=== PATIENT | male | born 1945 | race Hispanic/Latino ===

== ENCOUNTER 2017-09-21 13:51 | Inpatient (IN) | payer MEDICARE ==
[2017-09-21 13:57] VITALS: BMI 34.0
[2017-09-21] MEDS ORDERED: Aspirin 325 mg EC Tablets PO STA (14:51)
[2017-09-21 15:19] LABS: BASO # 0.1 K/uL (0.0-0.2); BASO % 1.1 % (0.0-2.0); EOS # 0.1 K/uL (0.0-0.7); EOS % 1.3 % (0.0-4.0); HEMOGLOBIN 11.4 g/dL (12.0-18.0); LYMPH # 0.8 K/uL (1.0-4.3); LYMPH % 17.2 % (20.0-40.0); MEAN CELL VOLUME 86.3 fL (80.0-94.0); MEAN CORPUSCULAR HEMOGLOBIN 29.5 pg (27.0-31.0); MEAN CORPUSCULAR HGB CONC 34.1 g/dL (33.0-37.0); MEAN PLATELET VOLUME 8.7 fL (7.2-11.7); MONO # 0.3 K/uL (0.0-0.8); MONO % 5.5 % (0.0-10.0); NEUT # 3.7 K/uL (1.8-7.0); NEUT % 74.9 % (50.0-75.0); RBC 3.87 Mil/uL (4.40-5.90); RED CELL DISTRIBUTION WIDTH 14.8 % (11.5-14.5); WHITE BLOOD COUNT 4.9 K/uL (4.8-10.8)
[2017-09-21 15:26] LABS: INR 1.1; PROTHROMBIN TIME 11.8 SECONDS (9.7-12.2)
[2017-09-21 15:31] LABS: ALB/GLOB RATIO 1.3 (1.0-2.1); ALT/SGPT 27 U/L (21-72); AST/SGOT 19 U/L (17-59); BLOOD UREA NITROGEN 15 mg/dL (9-20); CALCIUM 8.9 mg/dl (8.6-10.4); GFR AFRICAN-AMERICAN > 60; GFR NON-AFRICAN AMERICAN > 60
[2017-09-21 15:43] LABS: B-TYPE NATRIURETIC PEPTIDE 256 pg/mL (0-900)
--- NOTE | 2017-09-21 15:57 | C.PDOC ---
History Of Present Illness 72 year old male, whose PMHx includes DM, HTN, Hyperlipidema, and CABG, presents to the ED for evaluation of left-sided chest wall pain and left-sided headache which began last night. Patient was resting when his pain had sudden onset and has been sharp and constant in nature. Patient also reports pain in his left ear and reports dizziness described as a "room spinning" sensation. He denies nausea, vomiting. Time Seen by Provider: 09/21/17 14:15 Chief Complaint (Nursing): Chest Pain History Per: Patient History/Exam Limitations: no limitations Onset/Duration Of Symptoms: Hrs, Sudden Onset, Persistent Current Symptoms Are (Timing): Still Present Quality: Sharp, "Pain" Associated Symptoms: Diaphoresis. denies: Nausea Additional History Per: Patient Past Medical History Reviewed: Historical Data, Nursing Documentation, Vital Signs Vital Signs: Last Vital Signs Temp 98.1 F 09/21/17 14:10 Pulse 86 09/21/17 14:10 Resp 16 09/21/17 14:10 BP 153/66 H 09/21/17 14:10 Pulse Ox 97 09/21/17 16:39 - Medical History PMH: CAD, Diabetes, Fractures (RIGHT ELBOW), Gastritis, HTN, Hypercholesterolemia Denies: Chronic Kidney Disease Surgical History: CABG, Coronary Stent (X2) - [employer] Procedures INSERT INDWELLING CATH (02/18/14) Family History: States: Unknown Family Hx - Social History Hx Tobacco Use: No Hx Alcohol Use: No Hx Substance Use: No - Immunization History Hx Tetanus Toxoid Vaccination: No Hx Influenza Vaccination: Yes (05/2016) Hx Pneumococcal Vaccination: Yes (2014) Review Of Systems ENT: Positive for: Ear Pain (left) Cardiovascular: Positive for: Chest Pain (left-sided ) Gastrointestinal: Negative for: Nausea, Vomiting Neurological: Positive for: Headache (left-sided ), Dizziness Physical Exam - Physical Exam Appears: Non-toxic, No Acute Distress Skin: Normal Color, Warm, Dry Head: Atraumatic, Normacephalic Eye(s): bilateral: Normal Inspection, PERRL, EOMI, Other (no nystagmus ) Ear(s): Bilateral: Normal Oral Mucosa: Moist Neck: Supple Lymphatic: No Adenopathy Chest: Symmetrical, No Deformity, Tenderness (digitally reproducible to left parasternal border ) Cardiovascular: Rhythm Regular, No Murmur Respiratory: Normal Breath Sounds, No Rales, No Rhonchi, No Wheezing Extremity: Normal ROM, Pedal Edema (1/4), Capillary Refill (less than 2 seconds ) Pulses: Left Dorsalis Pedis: Normal, Right Dorsalis Pedis: Normal Neurological/Psych: Oriented x3, Normal Speech, Normal Cognition Gait: Steady ED Course And Treatment - Laboratory Results Result Diagrams: 09/21/17 15:10 09/21/17 15:10 Lab Interpretation: Normal (trop neg.) ECG: Interpreted By Me ECG Rhythm: Sinus Rhythm ECG Interpretation: Normal Rate From EC O2 Sat by Pulse Oximetry: 97 (on RA) Pulse Ox Interpretation: Normal - Radiology CXR: Interpreted by Me CXR Interpretation: Yes: No Acute Disease Progress Note: Bloodwork, urinalysis, EKG, CXR ordered and reviewed. Aspirin PO and Toradol IVP administered. Reevaluation Time: 16:34 Reassessment Condition: Improved - Physician Consult Information Outcome Of Conversation: 1630: d/w Dr. Overton- Medicine Mechanic Field Service- covering pt's for Dr. Andrea- nd to admit. Medical Decision Making Medical Decision Making: unstable angina moderately controlled DM and HTN Anxiety- Tramadol will help LOW susp of Acute intracerebral issues. Disposition Doctor Will See Patient In The: Hospital Counseled Patient/Family Regarding: Studies Performed, Diagnosis - Disposition Disposition: HOSPITALIZED Disposition Time: 16:37 Condition: GOOD Forms: [facility] (French) - Clinical Impression Clinical Impression: Chest discomfort, Headache - Scribe Statement The provider has reviewed the documentation as recorded by the Scribe (Rose Campbell) Provider Attestation: All medical record entries made by the Scribe were at my direction and personally dictated by me. I have reviewed the chart and agree that the record accurately reflects my personal performance of the history, physical exam, medical decision making, and the department course for this patient. I have also personally directed, reviewed, and agree with the discharge instructions and disposition.
[2017-09-21 17:03] LABS: SQUAMOUS EPITHIAL < 1 /hpf (0-5); URINE BILIRUBIN NEGATIVE (NEGATIVE); URINE BLOOD NEGATIVE (NEGATIVE); URINE CLARITY Clear (Clear); URINE COLOR Yellow (YELLOW); URINE GLUCOSE (UA) 3+ mg/dL (Normal); URINE LEUKOCYTE ESTERASE NEG Leu/uL (Negative); URINE NITRATE NEGATIVE (NEGATIVE); URINE PROTEIN NEGATIVE (NEGATIVE); URINE UROBILINOGEN NORMAL mg/dL (0.2-1.0)
--- NOTE | 2017-09-21 17:09 | RAD ---
PROCEDURE: CHEST RADIOGRAPH, 1 VIEW HISTORY: SOB COMPARISON: 03/09/2017 T-spine and chest x-ray 11/07/2015 FINDINGS: LUNGS: No consolidation. Clear lungs PLEURA: No pneumothorax or pleural fluid seen. CARDIOVASCULAR: Mild cardiomegaly. Status post midline sternotomy and coronary artery bypass surgery -stable appearance OSSEOUS STRUCTURES: Thoracic spondylosis. Bilateral shoulder arthrosis. Midline sternotomy VISUALIZED UPPER ABDOMEN: Normal. OTHER FINDINGS: None. IMPRESSION: No acute cardiopulmonary pathology noted
--- NOTE | 2017-09-21 19:45 | CP.PCM.HP ---
History of Present Illness - History of Present Illness History of Present Illness: Patient is a 72 year old male with a past medical history of HTN, HLD, DM, CABG , and aortic valve replacement, who presents to the ED with complaints of left sided chest pain, left ear pain, and left sided headache that worsens with respiration. Patient also complains of dizziness as well as shortness of breath and palpitations. Patient experienced these symptoms last night when he opened his eyes while sitting on the couch and when he walked from the couch to the bathroom. He describes the pain as stabbing needle-like pain. He said he has never experienced these symptoms in the past. The chest pain is also reproducible when he presses in a specific location on his left chest. Patient took a total of 4 Tylenol last night and another 2 this morning with minimal relief. Patient uses a cane just in case he feels dizzy. He states he does not know how long he has been using a cane or has felt dizzy, but it comes and goes for awhile. Currently, patient states his headache is very minimal, his chest pain has improved, but still worse with respiration and with touching that specific location; he denies abdominal pain, nausea, vomiting, referred pain, fevers, legs pain/swelling. PMD: Dr. Janak Andrea Mechanical Drafter: Dr. Harris PMHx: HTN, HLD, DM, AV replacement, SurgHx: CABG (2010), AV replacement (2010), B/L inguinal hernia repair FamHx: Father, Brother-[place]; Father- prostate cancer; Mother- breast cancer SocHx: former smoker (2ppd x20+ years); denies alcohol and drug use; lives alone in [place]; retired Allergies: NKDA Medications: Losartan-HCTZ 100-25mg daily, Amlodipine 5mg daily, Atorvastatin 40mg HS, Plavix 75mg daily, ASA 81mg daily, Metoprolol 25mg daily, protonix 40mg daily, finasteride 5mg daily, alfuzosin ER 10mg daily, Metformin 1000mg BID, meloxicam 15mg daily, gabapentin 600mg daily Present on Admission - Present on Admission Any Indicators Present on Admission: No Review of Systems - Constitutional Constitutional: Headache. absent: Chills, Fever - EENT Eyes: absent: Blurred Vision, Change in Vision Ears: Ear Pain, Dizziness Nose/Mouth/Throat: absent: Sore Throat, Neck Pain - Cardiovascular Cardiovascular: Chest Pain (reproducible; worse with respiration), Dyspnea on Exertion, Palpitations. absent: Leg Edema, Radiating Pain - Respiratory Respiratory: Dyspnea on Exertion. absent: Cough, Hemoptysis, Excessive Mucous Production, Change in Mucous Color - Gastrointestinal Gastrointestinal: absent: Abdominal Pain, Constipation, Diarrhea, Nausea, Vomiting - Genitourinary Genitourinary: absent: Dysuria, Hematuria, Urinary Frequency - Integumentary Integumentary: absent: Unusual Bruising, Wounds - Neurological Neurological: Abnormal Gait (walks with a cane prn for dizziness), Dizziness, Headaches. absent: Weakness - Endocrine Endocrine: Palpitations. absent: Fatigue, Polyuria Past Patient History - Infectious Disease Hx of Infectious Diseases: None - Past Medical History & Family History Past Medical History?: Yes - Past Social History Smoking Status: Former Smoker - CARDIAC Hx Hypercholesterolemia: Yes Hx Hypertension: Yes - PULMONARY Hx Respiratory Disorders: No - NEUROLOGICAL Hx Neurological Disorder: No - HEENT Hx HEENT Problems: No - RENAL Hx Chronic Kidney Disease: No - ENDOCRINE/METABOLIC Hx Endocrine Disorders: Yes Hx Diabetes Mellitus Type 2: Yes - HEMATOLOGICAL/ONCOLOGICAL Hx Blood Disorders: No - INTEGUMENTARY Hx Dermatological Problems: No - MUSCULOSKELETAL/RHEUMATOLOGICAL Hx Fractures: Yes (RIGHT ELBOW) - GASTROINTESTINAL Hx Gastritis: Yes - GENITOURINARY/GYNECOLOGICAL Hx Genitourinary Disorders: Yes Hx Prostate Problems: Yes - PSYCHIATRIC Hx Substance Use: No - SURGICAL HISTORY Hx Coronary Artery Bypass Graft: Yes Hx Coronary Stent: Yes (X2) - ANESTHESIA Hx Anesthesia: Yes Hx Anesthesia Reactions: No Meds Allergies/Adverse Reactions: Allergies Allergy/AdvReac Type Severity Reaction Status Date / Time pollen extracts Allergy CONGESTION Verified 09/21/17 13:57 Physical Exam - Constitutional Appears: No Acute Distress - Head Exam Head Exam: ATRAUMATIC, NORMAL INSPECTION - Eye Exam Eye Exam: EOMI, Normal appearance, PERRL - ENT Exam ENT Exam: Mucous Membranes Moist - Neck Exam Neck exam: Positive for: Full Rom, Normal Inspection. Negative for: Tenderness - Respiratory Exam Respiratory Exam: Clear to Auscultation Bilateral, NORMAL BREATHING PATTERN. absent: Rales, Rhonchi, Wheezes, Respiratory Distress - Cardiovascular Exam Cardiovascular Exam: REGULAR RHYTHM, +S1, +S2, Systolic Murmur (aortic valvle replacement) Additional comments: scar s/p CABG - GI/Abdominal Exam GI & Abdominal Exam: Normal Bowel Sounds, Soft. absent: Distended, Firm, Guarding, Mass, Tenderness - Extremities Exam Extremities exam: Positive for: pedal edema (minimal), pedal pulses present. Negative for: calf tenderness, tenderness - Neurological Exam Neurological exam: Alert, Oriented x3 - Psychiatric Exam Psychiatric exam: Normal Affect, Normal Mood - Skin Skin Exam: Dry, Intact, Normal Color, Warm Results - Vital Signs Recent Vital Signs: Last Vital Signs Temp 98.1 F 09/21/17 14:10 Pulse 86 09/21/17 14:10 Resp 16 09/21/17 14:10 BP 153/66 H 09/21/17 14:10 Pulse Ox 97 09/21/17 16:40 - Labs Result Diagrams: 09/21/17 15:10 09/21/17 15:10 Labs: Laboratory Results - last 24 hr 09/21/17 09/21/17 09/21/17 15:10 15:10 15:10 WBC 4.9 RBC 3.87 L Hgb 11.4 L Hct 33.4 L MCV 86.3 MCH 29.5 MCHC 34.1 RDW 14.8 H Plt Count 160 MPV 8.7 Neut % (Auto) 74.9 Lymph % (Auto) 17.2 L [place] % (Auto) 5.5 Eos % (Auto) 1.3 Baso % (Auto) 1.1 Neut # (Auto) 3.7 Lymph # (Auto) 0.8 L [place] # (Auto) 0.3 Eos # (Auto) 0.1 Baso # (Auto) 0.1 PT 11.8 INR 1.1 APTT 32 Sodium 138 Potassium 4.6 Chloride 101 Carbon Dioxide 25 Anion Gap 16 BUN 15 Creatinine 0.8 Est GFR ( Amer) > 60 Est GFR (Non-Af Amer) > 60 Random Glucose 253 H Calcium 8.9 Total Bilirubin 0.5 AST 19 ALT 27 Alkaline Phosphatase 92 Troponin I < 0.0120 NT-Pro-B Natriuret Pep 256 Total Protein 7.1 Albumin 4.0 Globulin 3.1 Albumin/Globulin Ratio 1.3 Urine Color Urine Clarity Urine pH Ur Specific [place] Urine Protein Urine Glucose (UA) Urine Ketones Urine Blood Urine Nitrate Urine Bilirubin Urine Urobilinogen Ur Leukocyte Esterase Urine WBC (Auto) Urine RBC (Auto) Ur Squamous Epith Cells 09/21/17 16:54 WBC RBC Hgb Hct MCV MCH MCHC RDW Plt Count MPV Neut % (Auto) Lymph % (Auto) [place] % (Auto) Eos % (Auto) Baso % (Auto) Neut # (Auto) Lymph # (Auto) [place] # (Auto) Eos # (Auto) Baso # (Auto) PT INR APTT Sodium Potassium Chloride Carbon Dioxide Anion Gap BUN Creatinine Est GFR ( Amer) Est GFR (Non-Af Amer) Random Glucose Calcium Total Bilirubin AST ALT Alkaline Phosphatase Troponin I NT-Pro-B Natriuret Pep Total Protein Albumin Globulin Albumin/Globulin Ratio Urine Color Yellow Urine Clarity Clear Urine pH 7.0 Ur Specific [place] 1.022 Urine Protein Negative Urine Glucose (UA) 3+ H Urine Ketones Negative Urine Blood Negative Urine Nitrate Negative Urine Bilirubin Negative Urine Urobilinogen Normal Ur Leukocyte Esterase Neg Urine WBC (Auto) < 1 Urine RBC (Auto) 1 Ur Squamous Epith Cells < 1 Assessment & Plan (1) Chest pain Assessment and Plan: R/O ACS Reproducible, unlikely cardiac origin Troponinx1: negative <0.012 Troponin & EKG x2 :f/u Chest xray: no acute cardiopulmonary pathology noted. D-Dimer: f/u to r/o PE Lipid panel: f/u A1c: f/u Cardiology consulted, Dr. Harris (pt's outpatient qc scientist) Monitor on telemetry Continue home medications: Losartan-HCTZ 100-25mg daily, Amlodipine 5mg daily, Metoprolol 25mg daily, Atorvastatin 40mg HS, Plavix 75mg daily, ASA 81mg daily. Status: Acute (2) Headache Assessment and Plan: Head CT w/o contrast: f/u results Tylenol 650mg PO Q6hr for pain Status: Acute (3) BPH (benign prostatic hyperplasia) Assessment and Plan: Continue home medication: Alfuzosin 10mg daily, Finasteride 5mg PO daily Status: Acute (4) Diabetes Assessment and Plan: Home medication: Metforming 1000mg PO BID- HOLD ISS- medium Hypoglycemia protocol Continue to monitor blood glucose, accuchecks Status: Acute (5) HTN (hypertension) Assessment and Plan: Continue home medications: Losartan-HCTZ 100-25mg daily, Amlodipine 5mg daily, Metoprolol 25mg daily Continue to monitor vitals Status: Acute (6) HLD (hyperlipidemia) Assessment and Plan: Continue home medication: Lipitor 40mg po daily Status: Acute (7) Prophylactic measure Assessment and Plan: SCDs Protonix 40mg PO daily Heart healthy diet PT/OT Status: Acute
[2017-09-21] MEDS: (Novolin R) Insulin Human Regular 100 units/ml vial SC SCH (22:03)
[2017-09-21 22:29] LABS: CK-MB 0.53 ng/mL (0.0-3.38)
[2017-09-22 04:48] LABS: TROPONIN I 0.014 ng/mL (0.00-0.120)
[2017-09-22 05:04] LABS: CK-MB 0.65 ng/mL (0.0-3.38)
[2017-09-22 07:22] LABS: BASO # 0.1 K/uL (0.0-0.2); BASO % 1.1 % (0.0-2.0); EOS # 0.1 K/uL (0.0-0.7); EOS % 2.4 % (0.0-4.0); HEMOGLOBIN 11.7 g/dL (12.0-18.0); LYMPH # 1.4 K/uL (1.0-4.3); MEAN CELL VOLUME 85.8 fL (80.0-94.0); MEAN CORPUSCULAR HEMOGLOBIN 29.6 pg (27.0-31.0); MEAN CORPUSCULAR HGB CONC 34.5 g/dL (33.0-37.0); MEAN PLATELET VOLUME 8.9 fL (7.2-11.7); MONO # 0.4 K/uL (0.0-0.8); MONO % 7.3 % (0.0-10.0); NEUT # 3.3 K/uL (1.8-7.0); NEUT % 62.2 % (50.0-75.0); RBC 3.94 Mil/uL (4.40-5.90); RED CELL DISTRIBUTION WIDTH 14.8 % (11.5-14.5); WHITE BLOOD COUNT 5.2 K/uL (4.8-10.8)
[2017-09-22] MEDS: (Novolin R) Insulin Human Regular 100 units/ml vial SC SCH ×3 (07:45→18:04)
[2017-09-22 08:08] LABS: ALB/GLOB RATIO 1.3 (1.0-2.1); ALBUMIN 3.7 g/dL (3.5-5.0); ALT/SGPT 28 U/L (21-72); AST/SGOT 23 U/L (17-59); BLOOD UREA NITROGEN 14 mg/dL (9-20); CALCIUM 8.5 mg/dl (8.6-10.4); GFR AFRICAN-AMERICAN > 60; GFR NON-AFRICAN AMERICAN > 60; HDL CHOLESTEROL 27 mg/dL (30-70)
[2017-09-22 08:17] LABS: LDL CHOLESTEROL 58 mg/dL (0-129)
--- NOTE | 2017-09-22 09:50 | CP.PCM.CON ---
History of Present Illness - History of Present Illness History of Present Illness: The patient is a 72 year old male with a past medical history of HTN, DM, CABG, and aortic valve replacement, who presents to with complaints of chest pain, left ear pain, headache and dizziness, Chest pain is to the left of the lower sternum (patient has circled it with a marker) and worsens with respiration. Patient experienced these symptoms last night when he opened his eyes while sitting on the couch and when he walked from the couch to the bathroom. He describes the pain as stabbing needle-like pain. The chest pain is also reproducible when he presses it. Last year, the patient had severe non anginal chest pain. In the extensive work up, the patient had a chest ct to r/o PE, an echo, a nuclear stress (non ischemic) and a cardiac cath (resulted in PCI of the rca, that did not relieve chest pain). Pt also had sternal xrays. Pain was finally relieved by gabapentin , which he has continued. PMD: Dr. Janak Andrea .PMHx: HTN, HLD, DM, AV replacement, SurgHx: CABG (2009), AV replacement (2010), B/L inguinal hernia repair FamHx: Father, Brother-[place]; Father- prostate cancer; Mother- breast cancer SocHx: former smoker (2ppd x20+ years); denies alcohol and drug use; lives alone in [place]; retired Allergies: NKDA Medications: Losartan-HCTZ 100-25mg daily, Amlodipine 5mg daily, Atorvastatin 40mg HS, Plavix 75mg daily, ASA 81mg daily, Metoprolol 25mg daily, protonix 40mg daily, finasteride 5mg daily, alfuzosin ER 10mg daily, Metformin 1000mg BID, meloxicam 15mg daily Review of Systems - Review of Systems All systems: reviewed and no additional remarkable complaints except (as above) Past Patient History - Infectious Disease Hx of Infectious Diseases: None - Past Medical History & Family History Past Medical History?: Yes - Past Social History Smoking Status: Former Smoker - CARDIAC Hx Hypercholesterolemia: Yes Hx Hypertension: Yes - PULMONARY Hx Respiratory Disorders: No - NEUROLOGICAL Hx Neurological Disorder: No - HEENT Hx HEENT Problems: No - RENAL Hx Chronic Kidney Disease: No - ENDOCRINE/METABOLIC Hx Endocrine Disorders: Yes Hx Diabetes Mellitus Type 2: Yes - HEMATOLOGICAL/ONCOLOGICAL Hx Blood Disorders: No - INTEGUMENTARY Hx Dermatological Problems: No - MUSCULOSKELETAL/RHEUMATOLOGICAL Hx Falls: No Hx Fractures: Yes (RIGHT ELBOW) - GASTROINTESTINAL Hx Gastritis: Yes - GENITOURINARY/GYNECOLOGICAL Hx Genitourinary Disorders: Yes Hx Prostate Problems: Yes - PSYCHIATRIC Hx Substance Use: No - SURGICAL HISTORY Hx Coronary Artery Bypass Graft: Yes Hx Coronary Stent: Yes (X2) - ANESTHESIA Hx Anesthesia: Yes Hx Anesthesia Reactions: No Hx Malignant Hyperthermia: No Has any member of the family had a problem w/ anesthesia?: No Meds Allergies/Adverse Reactions: Allergies Allergy/AdvReac Type Severity Reaction Status Date / Time pollen extracts Allergy CONGESTION Verified 09/21/17 13:57 - Medications Medications: Current Medications Acetaminophen (Tylenol 325mg Tab) 650 mg PO Q6 PRN PRN Reason: Pain, Mild (1-3) Amlodipine Besylate (Norvasc) 5 mg PO DAILY [facility] Aspirin (Aspirin Chewable) 81 mg PO DAILY [facility] Clopidogrel Bisulfate (Plavix) 75 mg PO DAILY [facility] Finasteride (Proscar) 5 mg PO DAILY [facility] Gabapentin (Neurontin) 600 mg PO DAILY [facility] Home Med (Alfuzosin Hcl [Uroxatral]) 10 mg PO DAILY [facility] Home Med (Meloxicam [Mobic]) 15 mg PO DAILY [facility] Insulin Human Regular (Novolin R) 0 unit [facility] PRN Reason: Protocol Last Admin: 09/21/17 22:03 Dose: Not Given Losartan Potassium (Cozaar) 100 mg PO DAILY [facility] Metoprolol Succinate (Toprol Xl) 25 mg PO DAILY [facility] Pantoprazole Sodium (Protonix Ec Tab) 40 mg PO DAILY [facility] Rosuvastatin Calcium (Crestor) 20 mg PO [facility] Last Admin: 09/21/17 22:03 Dose: 20 mg Physical Exam - Head Exam Head Exam: ATRAUMATIC, NORMAL INSPECTION - Eye Exam Eye Exam: EOMI Pupil Exam: NORMAL ACCOMODATION - ENT Exam ENT Exam: Mucous Membranes Moist - Respiratory Exam Respiratory Exam: Clear to Auscultation Bilateral, NORMAL BREATHING PATTERN - Cardiovascular Exam Cardiovascular Exam: REGULAR RHYTHM - GI/Abdominal Exam GI & Abdominal Exam: Normal Bowel Sounds - Exam External exam: NORMAL EXTERNAL EXAM Bimanual exam: NORMAL BIMANUAL EXAM - Extremities Exam Extremities exam: Positive for: normal inspection - Back Exam Back exam: NORMAL INSPECTION - Neurological Exam Neurological exam: Alert, CN II-XII Intact, Oriented x3, Reflexes Normal - Psychiatric Exam Psychiatric exam: Anxious - Skin Skin Exam: Normal Color Results - Vital Signs Recent Vital Signs: Last Vital Signs Temp 97.8 F 09/22/17 08:00 Pulse 68 09/22/17 08:00 Resp 20 09/22/17 08:00 BP 141/76 09/22/17 08:00 Pulse Ox 97 09/22/17 08:00 - Labs Result Diagrams: 09/22/17 07:05 09/22/17 07:05 Labs: Laboratory Results - last 24 hr 09/21/17 09/21/17 09/21/17 15:10 15:10 15:10 WBC 4.9 RBC 3.87 L Hgb 11.4 L Hct 33.4 L MCV 86.3 MCH 29.5 MCHC 34.1 RDW 14.8 H Plt Count 160 MPV 8.7 Neut % (Auto) 74.9 Lymph % (Auto) 17.2 L [place] % (Auto) 5.5 Eos % (Auto) 1.3 Baso % (Auto) 1.1 Neut # (Auto) 3.7 Lymph # (Auto) 0.8 L [place] # (Auto) 0.3 Eos # (Auto) 0.1 Baso # (Auto) 0.1 PT 11.8 INR 1.1 APTT 32 D-Dimer, Quantitative Sodium 138 Potassium 4.6 Chloride 101 Carbon Dioxide 25 Anion Gap 16 BUN 15 Creatinine 0.8 Est GFR ( Amer) > 60 Est GFR (Non-Af Amer) > 60 POC Glucose (mg/dL) Random Glucose 253 H Hemoglobin A1c Calcium 8.9 Total Bilirubin 0.5 AST 19 ALT 27 Alkaline Phosphatase 92 Total Creatine Kinase CK-MB (Mass) Troponin I < 0.0120 NT-Pro-B Natriuret Pep 256 Total Protein 7.1 Albumin 4.0 Globulin 3.1 Albumin/Globulin Ratio 1.3 Triglycerides Cholesterol LDL Cholesterol Direct HDL Cholesterol Urine Color Urine Clarity Urine pH Ur Specific [place] Urine Protein Urine Glucose (UA) Urine Ketones Urine Blood Urine Nitrate Urine Bilirubin Urine Urobilinogen Ur Leukocyte Esterase Urine WBC (Auto) Urine RBC (Auto) Ur Squamous Epith Cells 09/21/17 09/21/17 09/21/17 16:54 21:22 21:58 WBC RBC Hgb Hct MCV MCH MCHC RDW Plt Count MPV Neut % (Auto) Lymph % (Auto) [place] % (Auto) Eos % (Auto) Baso % (Auto) Neut # (Auto) Lymph # (Auto) [place] # (Auto) Eos # (Auto) Baso # (Auto) PT INR APTT D-Dimer, Quantitative Sodium Potassium Chloride Carbon Dioxide Anion Gap BUN Creatinine Est GFR ( Amer) Est GFR (Non-Af Amer) POC Glucose (mg/dL) 126 H Random Glucose Hemoglobin A1c Calcium Total Bilirubin AST ALT Alkaline Phosphatase Total Creatine Kinase 46 L CK-MB (Mass) 0.53 Troponin I < 0.0120 NT-Pro-B Natriuret Pep Total Protein Albumin Globulin Albumin/Globulin Ratio Triglycerides Cholesterol LDL Cholesterol Direct HDL Cholesterol Urine Color Yellow Urine Clarity Clear Urine pH 7.0 Ur Specific [place] 1.022 Urine Protein Negative Urine Glucose (UA) 3+ H Urine Ketones Negative Urine Blood Negative Urine Nitrate Negative Urine Bilirubin Negative Urine Urobilinogen Normal Ur Leukocyte Esterase Neg Urine WBC (Auto) < 1 Urine RBC (Auto) 1 Ur Squamous Epith Cells < 1 09/21/17 09/22/17 09/22/17 21:58 04:05 06:43 WBC RBC Hgb Hct MCV MCH MCHC RDW Plt Count MPV Neut % (Auto) Lymph % (Auto) [place] % (Auto) Eos % (Auto) Baso % (Auto) Neut # (Auto) Lymph # (Auto) [place] # (Auto) Eos # (Auto) Baso # (Auto) PT INR APTT D-Dimer, Quantitative < 200 Sodium Potassium Chloride Carbon Dioxide Anion Gap BUN Creatinine Est GFR ( Amer) Est GFR (Non-Af Amer) POC Glucose (mg/dL) 120 H Random Glucose Hemoglobin A1c Calcium Total Bilirubin AST ALT Alkaline Phosphatase Total Creatine Kinase 44 L CK-MB (Mass) 0.65 Troponin I 0.0140 NT-Pro-B Natriuret Pep Total Protein Albumin Globulin Albumin/Globulin Ratio Triglycerides Cholesterol LDL Cholesterol Direct HDL Cholesterol Urine Color Urine Clarity Urine pH Ur Specific [place] Urine Protein Urine Glucose (UA) Urine Ketones Urine Blood Urine Nitrate Urine Bilirubin Urine Urobilinogen Ur Leukocyte Esterase Urine WBC (Auto) Urine RBC (Auto) Ur Squamous Epith Cells 09/22/17 09/22/17 09/22/17 07:05 07:05 07:05 WBC 5.2 RBC 3.94 L Hgb 11.7 L Hct 33.8 L MCV 85.8 MCH 29.6 MCHC 34.5 RDW 14.8 H Plt Count 167 MPV 8.9 Neut % (Auto) 62.2 Lymph % (Auto) 27.0 [place] % (Auto) 7.3 Eos % (Auto) 2.4 Baso % (Auto) 1.1 Neut # (Auto) 3.3 Lymph # (Auto) 1.4 [place] # (Auto) 0.4 Eos # (Auto) 0.1 Baso # (Auto) 0.1 PT INR APTT D-Dimer, Quantitative Sodium 138 Potassium 3.7 Chloride 103 Carbon Dioxide 26 Anion Gap 13 BUN 14 Creatinine 0.8 Est GFR ( Amer) > 60 Est GFR (Non-Af Amer) > 60 POC Glucose (mg/dL) Random Glucose 124 H Hemoglobin A1c 7.1 H Calcium 8.5 L Total Bilirubin 0.6 AST 23 ALT 28 Alkaline Phosphatase 76 Total Creatine Kinase CK-MB (Mass) Troponin I NT-Pro-B Natriuret Pep Total Protein 6.7 Albumin 3.7 Globulin 3.0 Albumin/Globulin Ratio 1.3 Triglycerides 165 H D Cholesterol 116 LDL Cholesterol Direct 58 HDL Cholesterol 27 L Urine Color Urine Clarity Urine pH Ur Specific [place] Urine Protein Urine Glucose (UA) Urine Ketones Urine Blood Urine Nitrate Urine Bilirubin Urine Urobilinogen Ur Leukocyte Esterase Urine WBC (Auto) Urine RBC (Auto) Ur Squamous Epith Cells - EKG Data EKG shows normal: Sinus rhythm (nsr, lateral t wave abnormality) Assessment & Plan - Assessment and Plan (Free Text) Assessment: 1. CAD is stable: TNI is negative and pain is overwhelmingly non anginal. Pt responded to gabapentin in the past for similar pain after an exhaustive work up. Consider advancing the dose. If pain continues, cine flouro of the sternum can be considered. 2. BP is mildly high in the setting of pain. Observe for now. 3. Vertigo/headache: work up in progress. 4. AVR: echo' have demonstrated good avr function.
[2017-09-22] MEDS ORDERED: Metoprolol Succinate 12.5 mg XL PO SCH (10:00)
[2017-09-22] MEDS ORDERED: CLOPIDOGREL PO SCH (10:00)
[2017-09-22] MEDS ORDERED: Metoprolol Succinate 25 mg XL Tab PO SCH (10:00)
[2017-09-22] MEDS ORDERED: Pantoprazole 40 mg EC Tab PO SCH ×3 (10:00)
[2017-09-22] MEDS ORDERED: Home Med 1 UNIT (Meloxicam [Meloxicam] 7.5 MG) PO SCH (10:00)
[2017-09-22] MEDS ORDERED: Home Med 1 UNIT (Meloxicam [Mobic] 15 MG) PO SCH (10:00)
[2017-09-22] MEDS ORDERED: ALFUZOSIN HCL 10 MG PO SCH (10:00)
--- NOTE | 2017-09-22 10:09 | CT ---
PROCEDURE: CT HEAD WITHOUT CONTRAST. HISTORY: headache, dizzy, ear pain COMPARISON: Comparison made with prior CT scan brain 11/09/2015. TECHNIQUE: Axial computed tomography images were obtained through the head/brain without intravenous contrast. Radiation dose: Total exam DLP = 1132.81 mGy-cm. This CT exam was performed using one or more of the following dose reduction techniques: Automated exposure control, adjustment of the mA and/or kV according to patient size, and/or use of iterative reconstruction technique. FINDINGS: HEMORRHAGE: No acute parenchymal, subarachnoid or extra-axial hemorrhage. BRAIN: Suspect minimal chronic periventricular white matter ischemic disease. No evidence of large acute infarct. No obvious parenchymal nor extra-axial mass or collection identified on this noncontrast exam. Mild generalized volume loss. Vascular calcifications both carotid siphons. VENTRICLES: No obstructive hydrocephalus. CALVARIUM: Calvarium appears grossly intact. PARANASAL SINUSES: Unremarkable as visualized. No significant inflammatory changes. MASTOID AIR CELLS: Unremarkable as visualized. No inflammatory changes. OTHER FINDINGS: There appears to be mild bilateral axial thalamus. On correlation with thyroid function tests suggested. IMPRESSION: No acute intracranial hemorrhage. Suspect minimal chronic periventricular white matter ischemic changes. Mild generalized volume loss.
[2017-09-22 15:28] VITALS: BP 148/62; PULSE 64; RESP 18; TEMP 98; O2SAT 96
--- NOTE | 2017-09-22 18:13 | CP.PCM.DIS ---
Provider - Provider Date of Admission: 09/21/17 16:31 Attending physician: Tim Overton Jr, MD Consults: Dr. Harris- window glazier Time Spent in preparation of Discharge (in minutes): 45 Diagnosis - Discharge Diagnosis (1) Chest pain Status: Acute (2) Headache Status: Acute (3) BPH (benign prostatic hyperplasia) Status: Acute (4) Diabetes Status: Acute (5) HTN (hypertension) Status: Acute (6) HLD (hyperlipidemia) Status: Acute (7) Prophylactic measure Status: Acute Hospital Course - Lab Results Lab Results: Most Recent Lab Values WBC 5.2 K/uL (4.8-10.8) 09/22/17 07:05 RBC 3.94 Mil/uL (4.40-5.90) L 09/22/17 07:05 Hgb 11.7 g/dL (12.0-18.0) L 09/22/17 07:05 Hct 33.8 % (35.0-51.0) L 09/22/17 07:05 MCV 85.8 fL (80.0-94.0) 09/22/17 07:05 MCH 29.6 pg (27.0-31.0) 09/22/17 07:05 MCHC 34.5 g/dL (33.0-37.0) 09/22/17 07:05 RDW 14.8 % (11.5-14.5) H 09/22/17 07:05 Plt Count 167 K/uL (130-400) 09/22/17 07:05 MPV 8.9 fL (7.2-11.7) 09/22/17 07:05 Neut % (Auto) 62.2 % (50.0-75.0) 09/22/17 07:05 Lymph % (Auto) 27.0 % (20.0-40.0) 09/22/17 07:05 [place] % (Auto) 7.3 % (0.0-10.0) 09/22/17 07:05 Eos % (Auto) 2.4 % (0.0-4.0) 09/22/17 07:05 Baso % (Auto) 1.1 % (0.0-2.0) 09/22/17 07:05 Neut # (Auto) 3.3 K/uL (1.8-7.0) 09/22/17 07:05 Lymph # (Auto) 1.4 K/uL (1.0-4.3) 09/22/17 07:05 [place] # (Auto) 0.4 K/uL (0.0-0.8) 09/22/17 07:05 Eos # (Auto) 0.1 K/uL (0.0-0.7) 09/22/17 07:05 Baso # (Auto) 0.1 K/uL (0.0-0.2) 09/22/17 07:05 PT 11.8 SECONDS (9.7-12.2) 09/21/17 15:10 INR 1.1 09/21/17 15:10 APTT 32 SECONDS (21-34) 09/21/17 15:10 D-Dimer, Quantitative < 200 ng/mlDDU (0-243) 09/21/17 21:58 Sodium 138 mmol/L (132-148) 09/22/17 07:05 Potassium 3.7 mmol/L (3.6-5.2) 09/22/17 07:05 Chloride 103 mmol/L (98-107) 09/22/17 07:05 Carbon Dioxide 26 mmol/L (22-30) 09/22/17 07:05 Anion Gap 13 (10-20) 09/22/17 07:05 BUN 14 mg/dL (9-20) 09/22/17 07:05 Creatinine 0.8 mg/dL (0.8-1.5) 09/22/17 07:05 Est GFR ( Amer) > 60 09/22/17 07:05 Est GFR (Non-Af Amer) > 60 09/22/17 07:05 POC Glucose (mg/dL) 177 mg/dL (65-110) H 09/22/17 16:53 Random Glucose 124 mg/dL (75-110) H 09/22/17 07:05 Hemoglobin A1c 7.1 % (4.2-6.5) H 09/22/17 07:05 Calcium 8.5 mg/dl (8.6-10.4) L 09/22/17 07:05 Total Bilirubin 0.6 mg/dL (0.2-1.3) 09/22/17 07:05 AST 23 U/L (17-59) 09/22/17 07:05 ALT 28 U/L (21-72) 09/22/17 07:05 Alkaline Phosphatase 76 U/L (38-126) 09/22/17 07:05 Total Creatine Kinase 44 U/L (55-170) L 09/22/17 04:05 CK-MB (Mass) 0.65 ng/mL (0.0-3.38) 09/22/17 04:05 Troponin I 0.0140 ng/mL (0.00-0.120) 09/22/17 04:05 NT-Pro-B Natriuret Pep 256 pg/mL (0-900) 09/21/17 15:10 Total Protein 6.7 g/dL (6.3-8.3) 09/22/17 07:05 Albumin 3.7 g/dL (3.5-5.0) 09/22/17 07:05 Globulin 3.0 gm/dL (2.2-3.9) 09/22/17 07:05 Albumin/Globulin Ratio 1.3 (1.0-2.1) 09/22/17 07:05 Triglycerides 165 mg/dL (0-149) H D 09/22/17 07:05 Cholesterol 116 mg/dL (0-199) 09/22/17 07:05 LDL Cholesterol Direct 58 mg/dL (0-129) 09/22/17 07:05 HDL Cholesterol 27 mg/dL (30-70) L 09/22/17 07:05 Urine Color Yellow (YELLOW) 09/21/17 16:54 Urine Clarity Clear (Clear) 09/21/17 16:54 Urine pH 7.0 (5.0-8.0) 09/21/17 16:54 Ur Specific [place] 1.022 (1.003-1.030) 09/21/17 16:54 Urine Protein Negative mg/dL (NEGATIVE) 09/21/17 16:54 Urine Glucose (UA) 3+ mg/dL (Normal) H 09/21/17 16:54 Urine Ketones Negative mg/dL (NEGATIVE) 09/21/17 16:54 Urine Blood Negative (NEGATIVE) 09/21/17 16:54 Urine Nitrate Negative (NEGATIVE) 09/21/17 16:54 Urine Bilirubin Negative (NEGATIVE) 09/21/17 16:54 Urine Urobilinogen Normal mg/dL (0.2-1.0) 09/21/17 16:54 Ur Leukocyte Esterase Neg Francoise/uL (Negative) 09/21/17 16:54 Urine WBC (Auto) < 1 /hpf (0-5) 09/21/17 16:54 Urine RBC (Auto) 1 /hpf (0-3) 09/21/17 16:54 Ur Squamous Epith Cells < 1 /hpf (0-5) 09/21/17 16:54 - Hospital Course Hospital Course: HPI: Patient is a 72 year old male with a past medical history of HTN, HLD, DM, CABG, and aortic valve replacement, who presents to the ED with complaints of left sided chest pain, left ear pain, and left sided headache that worsens with respiration. Patient also complains of dizziness as well as shortness of breath and palpitations. Patient experienced these symptoms last night when he opened his eyes while sitting on the couch and when he walked from the couch to the bathroom. He describes the pain as stabbing needle-like pain. He said he has never experienced these symptoms in the past. The chest pain is also reproducible when he presses in a specific location on his left chest. Patient took a total of 4 Tylenol last night and another 2 this morning with minimal relief. Patient uses a cane just in case he feels dizzy. He states he does not know how long he has been using a cane or has felt dizzy, but it comes and goes for awhile. Currently, patient states his headache is very minimal, his chest pain has improved, but still worse with respiration and with touching that specific location; he denies abdominal pain, nausea, vomiting, referred pain, fevers, legs pain/swelling. PMD: Dr. Janak Andrea Business Administration Professor: Dr. Harris PMHx: HTN, HLD, DM, AV replacement, SurgHx: CABG (2009), AV replacement (2010), B/L inguinal hernia repair FamHx: Father, Brother-[place]; Father- prostate cancer; Mother- breast cancer SocHx: former smoker (2ppd x20+ years); denies alcohol and drug use; lives alone in [place]; retired Allergies: NKDA Medications: Losartan-HCTZ 100-25mg daily, Amlodipine 5mg daily, Atorvastatin 40mg HS, Plavix 75mg daily, ASA 81mg daily, Metoprolol 25mg daily, protonix 40mg daily, finasteride 5mg daily, alfuzosin ER 10mg daily, Metformin 1000mg BID, meloxicam 15mg daily, gabapentin 600mg daily Hospital course: Patient was admitted on 09/21/17 for chest pain, headache, and dizziness. In the ED, labs were drawn, images taken, and medication was given. EKG showed normal sinus rhythm, ST and [place] abnormalities. Chest xray showed no acute cardiopulmonary pathology. On labs, troponins were negative times 3, d- dimer was negative. Cardiology, Dr. Harris, was consulted (patient's outpatient window glazier). Dr. Harris examined patient and as per note, patients chest pain was nonanginal. Head CT was ordered and showed no acute pathology. Patient's home mediation for BPH, HTN, HLD, were restarted, and insulin was started for history of diabetes. Patient was seen and examined; patient reported still feeling dizzy at times, however the chest pain, ear pain , and headache improved. Patient is stable for discharge to home with new medication, Meclizine. Patient advised to make appointment with ENT physician, Dr. Valdovinos. Patient must follow up with PMD and window glazier within 1-2 weeks of discharge. This is a summary of the hospital course. Please see EMR for more details. Discharge Exam - Head Exam Head Exam: ATRAUMATIC, NORMAL INSPECTION - Eye Exam Eye Exam: EOMI, Normal appearance - ENT Exam ENT Exam: Mucous Membranes Moist - Respiratory Exam Respiratory Exam: Clear to PA & Lateral, NORMAL BREATHING PATTERN, UNREMARKABLE. absent: Rales, Rhonchi, Wheezes, Respiratory Distress - Cardiovascular Exam Cardiovascular Exam: REGULAR RHYTHM, +S1, +S2, Systolic Murmur Additional comments: scar s/p CABG - GI/Abdominal Exam GI & Abdominal Exam: Normal Bowel Sounds, Soft, Unremarkable. absent: Distended , Firm - Extremities Exam Extremities exam: pedal edema (minimal), pedal pulses present - Neurological Exam Neurological exam: Alert, Oriented x3 - Psychiatric Exam Psychiatric exam: Normal Affect, Normal Mood - Skin Skin Exam: Dry, Intact, Normal Color, Warm Discharge Plan - Discharge Medications Prescriptions: Meclizine [Antivert] 12.5 mg PO Q8H PRN #42 tab PRN Reason: Dizziness - Follow Up Plan Condition: GOOD Disposition: HOME/ ROUTINE Instructions: Angina (DC), Chest Pain (DC) Additional Instructions: Patient is stable for discharge to home. Patient must continue all home medications. Patient must take new medication as prescribed: Meclizine 12.5mg PO Q8hr PRN- take 1 tablet up to three times a day as needed for dizziness. [Rx sent electronically to preferred pharmacy.] Patient should make an appointment with ENT, Dr. Valdovinos. Patient must follow up with PMD within 1-2 weeks of discharge. Patient must follow up with window glazier, Dr. Harris, within 1-2 weeks of discharge. If symptoms reoccur or worsen, patient should return to the ED. Referrals: Lucio Valdovinos MD [Staff Provider] -
--- NOTE | 2017-09-23 15:10 | CARD ---
APPROVED REPORT EKG Measurement Heart [id number] [place] [id number] <Conclusion> Sinus rhythm with 1st degree AV block ST & T wave abnormality, consider lateral ischemia Abnormal ECG
--- NOTE | 2017-09-23 15:17 | CARD ---
APPROVED REPORT EKG Measurement Heart [id number] [place] [id number] <Conclusion> Normal sinus rhythm ST & T wave abnormality, consider lateral ischemia Abnormal ECG
--- NOTE | 2017-09-25 11:16 | CARD ---
APPROVED REPORT EKG Measurement Heart [id number] [place] [id number] <Conclusion> Sinus rhythm with 1st degree AV block T wave abnormality, consider lateral ischemia Abnormal ECG
== END 2017-09-22 20:00 | disposition home or self-care (01) | DRG 313 ==
LOC: C.ER 13:51 → C.9E 16:31 → C.6T 18:38
PROVIDERS: ADMIT Internal Medicine; ATTEND Internal Medicine
DX: R07.89 Other chest pain (principal); I25.110 Atherosclerotic heart disease of native coronary artery with unstable angina pectoris; E11.9 Type 2 diabetes mellitus without complications; E78.5 Hyperlipidemia, unspecified; F41.9 Anxiety disorder, unspecified; I10 Essential (primary) hypertension; N40.0 Benign prostatic hyperplasia without lower urinary tract symptoms; Z87.891 Personal history of nicotine dependence; Z95.1 Presence of aortocoronary bypass graft; Z95.2 Presence of prosthetic heart valve; Z95.5 Presence of coronary angioplasty implant and graft

== ENCOUNTER 2018-03-22 14:24 | Emergency (ER) | payer MEDICARE ==
[2018-03-22 14:35] VITALS: BMI 34.2
[2018-03-22 14:40] VITALS: O2SAT 99
--- NOTE | 2018-03-22 16:28 | C.PDOC ---
History Of Present Illness 73 y/o male with history of prostate enlargement presents to ED with c/o hematuria since this morning associated with suprapubic abdominal discomfort. Patient admits to decreased urine output and denies fever, back pain, nausea, vomiting or any other complaints at this time. Time Seen by Provider: 03/22/18 15:35 Chief Complaint (Nursing): Male Genitourinary History Per: Patient History/Exam Limitations: no limitations Onset/Duration Of Symptoms: Hrs Current Symptoms Are (Timing): Still Present Quality Of Discomfort: "Pain" Associated Symptoms: Urinary Symptoms Past Medical History Reviewed: Historical Data, Nursing Documentation, Vital Signs Vital Signs: Last Vital Signs Temp 98.4 F 03/22/18 14:38 Pulse 89 03/22/18 14:38 Resp 18 03/22/18 14:38 BP 159/70 H 03/22/18 14:38 Pulse Ox 99 03/22/18 16:29 - Medical History PMH: CAD, Diabetes, Fractures (RIGHT ELBOW), Gastritis, HTN, Hypercholesterolemia Surgical History: CABG, Coronary Stent (X2) - Leaf Procedures INSERT INDWELLING CATH (02/18/14) Family History: States: No Known Family Hx - Social History Hx Tobacco Use: No Hx Alcohol Use: No Hx Substance Use: No - Immunization History Hx Tetanus Toxoid Vaccination: No Hx Influenza Vaccination: Yes (05/2016) Hx Pneumococcal Vaccination: Yes (2014) Review Of Systems Constitutional: Negative for: Fever, Chills Gastrointestinal: Positive for: Abdominal Pain. Negative for: Nausea, Vomiting Genitourinary: Positive for: Hematuria. Negative for: Dysuria Musculoskeletal: Negative for: Back Pain Skin: Negative for: Rash Neurological: Negative for: Numbness Physical Exam - Physical Exam Appears: Non-toxic, No Acute Distress Skin: Warm, Dry, No Rash Head: Atraumatic, Normacephalic Eye(s): bilateral: Normal Inspection Oral Mucosa: Moist Neck: Normal ROM, Supple Cardiovascular: Rhythm Regular Respiratory: Normal Breath Sounds, No Rales, No Rhonchi, No Wheezing Gastrointestinal/Abdominal: Soft, Tenderness (mild suprapubic), No Guarding, No Rebound Back: No CVA Tenderness Extremity: Normal ROM, Capillary Refill (<2 seconds) Neurological/Psych: Oriented x3, Normal Speech, Normal Cognition ED Course And Treatment - Laboratory Results Result Diagrams: 03/22/18 16:45 03/22/18 16:45 O2 Sat by Pulse Oximetry: 99 (RA) Pulse Ox Interpretation: Normal Progress Note: The case and results were discussed with the patient and dr. Gambino (Urologist) who states to give the patient Rocephin IV once, Flomax 0.8mg and discharge home with cipro bID for 10 days. On re-exam, the patient is resting comfortably and feels better. Lungs are CTA, heart is RRR, abdomen is soft, non-tender and tolerating PO well. Follow up with the medical doctor within 1-2 days. Return if worsened. Medical Decision Making Medical Decision Making: On re-exam, the patient is resting comfortably and feels better. Lungs are CTA, heart is RRR, abdomen is soft, non-tender and tolerating PO well. Follow up with the medical doctor within 1-2 days. Return if worsened. Disposition Counseled Patient/Family Regarding: Studies Performed, Need For Followup, Rx Given - Disposition Referrals: Loc Gambino MD [Staff Provider] - Disposition: HOME/ ROUTINE Disposition Time: 18:44 Condition: FAIR Additional Instructions: Follow up with the medical doctor within 1-2 days. Return if worsened. Prescriptions: Ciprofloxacin HCl [Cipro] 500 mg PO BID #20 tab Instructions: Blood in the Urine (Hematuria) in Adults, Acute Cystitis (DC) Forms: [employer] (Divehi) Print Language: VIETNAMESE - Clinical Impression Clinical Impression: Hematuria, Cystitis - PA / TOWEL CABINET REPAIRER / Resident Statement MD/DO has reviewed & agrees with the documentation as recorded. - Scribe Statement The provider has reviewed the documentation as recorded by the Danaibvijay Bailey All medical record entries made by the Nathan were at my direction and personally dictated by me. I have reviewed the chart and agree that the record accurately reflects my personal performance of the history, physical exam, medical decision making, and the department course for this patient. I have also personally directed, reviewed, and agree with the discharge instructions and disposition.
[2018-03-22 16:49] LABS: BASO # 0.1 K/uL (0.0-0.2); BASO % 1.2 % (0.0-2.0); EOS # 0.1 K/uL (0.0-0.7); EOS % 0.8 % (0.0-4.0); HEMOGLOBIN 12.2 g/dL (12.0-18.0); LYMPH # 0.9 K/uL (1.0-4.3); LYMPH % 14.1 % (20.0-40.0); MEAN CORPUSCULAR HEMOGLOBIN 28.7 pg (27.0-31.0); MEAN CORPUSCULAR HGB CONC 34.2 g/dL (33.0-37.0); MEAN PLATELET VOLUME 8.7 fL (7.2-11.7); MONO # 0.4 K/uL (0.0-0.8); MONO % 6.3 % (0.0-10.0); NEUT # 5.1 K/uL (1.8-7.0); NEUT % 77.6 % (50.0-75.0); NRBC % 0.1 % (0.0-2.0); RBC 4.24 Mil/uL (4.40-5.90); RED CELL DISTRIBUTION WIDTH 14.8 % (11.5-14.5); WHITE BLOOD COUNT 6.6 K/uL (4.8-10.8)
[2018-03-22 16:59] LABS: SQUAMOUS EPITHIAL 7 /hpf (0-5); URINE BACTERIA FEW (<OCC); URINE BILIRUBIN NEGATIVE (NEGATIVE); URINE BLOOD 3+ (NEGATIVE); URINE CLARITY Hazy (Clear); URINE COLOR RED (YELLOW); URINE GLUCOSE (UA) 3+ mg/dL (Normal); URINE LEUKOCYTE ESTERASE TRACE Leu/uL (Negative); URINE PROTEIN 2+ mg/dL (NEGATIVE); URINE UROBILINOGEN NORMAL mg/dL (0.2-1.0)
[2018-03-22 17:02] LABS: ALB/GLOB RATIO 1.7 (1.0-2.1); ALBUMIN 4.5 g/dL (3.5-5.0); ALT/SGPT 33 U/L (21-72); AST/SGOT 23 U/L (17-59); BLOOD UREA NITROGEN 11 mg/dL (9-20); CALCIUM 9.6 mg/dl (8.6-10.4); GFR AFRICAN-AMERICAN > 60; GFR NON-AFRICAN AMERICAN > 60
[2018-03-22] MEDS ORDERED: cefTRIAXone IV 1 gm in Dextros 50 ML IV ONE (18:01)
[2018-03-22 19:31] VITALS: RESP 20
[2018-03-22 19:32] VITALS: BP 146/76; PULSE 82; TEMP 98
== END 2018-03-22 19:31 | disposition home or self-care (01) ==
LOC: C.ER 14:24
DX: N30.91 Cystitis, unspecified with hematuria (principal); I10 Essential (primary) hypertension; E78.00 Pure hypercholesterolemia, unspecified; E11.9 Type 2 diabetes mellitus without complications; I25.10 Atherosclerotic heart disease of native coronary artery without angina pectoris